=== PATIENT | female | born 1940 | race Caucasian/White ===

== ENCOUNTER → 2020-02-28 | Outpatient (CLI) | payer MEDICARE ==
[~2020-02-28] MED LIST: APIX5TAB PO; ATEN25TA PO; BRIM15OS OU; CETI10CA5 PO; CHOL20004 PO; HYDR25TA PO; LATA2.5D14 OU; LETR2.5T7 PO; LEVO50TA11 PO; LOSA100T58 PO; LOVA40TA2 PO; PANT40TA54 PO; SERT50TA12 PO; TRAM50TA4 PO; TRAZ-185 PO
== END | disposition home or self-care (01) ==
LOC: RAH 11:47
PROVIDERS: ATTEND Otolaryngology Plastic Surgery within the Head & Neck
DX: E04.1 Nontoxic single thyroid nodule (principal)
CPT/HCPCS: 76536

== ENCOUNTER → 2020-07-25 | Outpatient (CLI) | payer MEDICARE ==
[~2020-07-25] MED LIST changes: +SERT-439 PO; -SERT50TA12 PO
== END | disposition home or self-care (01) ==
LOC: RAH 15:19
PROVIDERS: ATTEND Otolaryngology Plastic Surgery within the Head & Neck
DX: E04.1 Nontoxic single thyroid nodule (principal); E89.0 Postprocedural hypothyroidism
CPT/HCPCS: 76536

== ENCOUNTER → 2020-08-15 | Outpatient (CLI) | payer MEDICARE ==
[2020-08-15 10:49] LABS: PROTHROMBIN TIME 10.9 SEC (9.6-11.6)
[2020-08-15 10:50] LABS: PARTIAL THROMBOPLASTIN TIME 25.4 SEC (26.3-35.5)
== END | disposition home or self-care (01) ==
LOC: RAH 09:48
PROVIDERS: ATTEND Otolaryngology Plastic Surgery within the Head & Neck
DX: R22.1 Localized swelling, mass and lump, neck (principal); I88.9 Nonspecific lymphadenitis, unspecified; Z98.890 Other specified postprocedural states
CPT/HCPCS: 36415; 76536; 85610; 85730

== ENCOUNTER → 2022-03-13 | Outpatient (CLI) | payer MEDICARE ==
[~2022-03-13] MED LIST changes: +IOHEXOL 350 MG/ML 100ML INFUS..BTL IV ONE
== END | disposition home or self-care (01) ==
LOC: RAH 13:30
PROVIDERS: ATTEND Family Medicine
DX: M48.54XA Collapsed vertebra, not elsewhere classified, thoracic region, initial encounter for fracture (principal); M85.80 Other specified disorders of bone density and structure, unspecified site
CPT/HCPCS: 72130; Q9967

== ENCOUNTER 2022-04-01 07:29 | Day surgery (SDC) | payer MEDICARE ==
[2022-03-31 12:07] LABS: BASOPHILS % (AUTO) 0.8 % (0.0-5.0); EOSINOPHILS % (AUTO) 4.2 % (0.0-8.0); LYMPHOCYTES % (AUTO) 31.2 % (21.0-51.0); MEAN CORPUSCULAR HEMOGLOBIN 27.5 pg (27.0-33.0); MEAN CORPUSCULAR HGB CONC 30.9 g/dL (32.0-36.0); MEAN CORPUSCULAR VOLUME 88.9 fL (79-99); NEUTROPHILS % (AUTO) 55.6 % (40.0-77.0); PLATELET COUNT (AUTO) 321 K/uL (130-400); RED BLOOD CELL COUNT(AUTO) 3.71 MIL/uL (4.00-5.50); RED CELL DISTRIBUTION WIDTH 13.8 % (11.0-15.5); WHITE BLOOD COUNT (AUTO) 6.6 K/uL (4.8-10.8)
[2022-03-31 12:18] LABS: CREATININE 1.2 mg/dL (0.5-1.5)
[2022-03-31 12:20] LABS: INR 0.97 (0.85-1.15); PROTHROMBIN TIME 10.6 SEC (9.6-11.6)
[2022-03-31 12:38] VITALS: BP 122/81
[~2022-04-01] VITALS: Ht 152.4 cm; Wt 55.9 kg
[2022-04-01] VITALS (9 sets, daily range): BP systolic 91–215; BP diastolic 53–110
[~2022-04-01 07:29] MED LIST changes: +CEFAZOLIN SODIUM 2 GM VIAL IVPB SCH; -IOHEXOL 350 MG/ML 100ML INFUS..BTL IV ONE
[2022-04-01] MEDS ORDERED: 0.9%NACL 1000ML 1,000 ML IV ONE (07:35)
[2022-04-01] MEDS ORDERED: CEFAZOLIN SODIUM 1 GM VIAL ONE (08:25)
[2022-04-01] MEDS ORDERED: LIDOCAINE HCL 1% 20 ML VIAL ONE (08:25)
[2022-04-01] MEDS ORDERED: MIDAZOLAM HCL 1 MG/ML 2ML VIAL ONE ×2 (08:25→10:31)
[2022-04-01] MEDS ORDERED: BUPIVACAINE/PF 0.25% 30ML VIAL IJ ONE (08:25)
[2022-04-01] MEDS ORDERED: MEPERIDINE-PF 25 MG/ML SYG ONE ×2 (08:25→10:31)
[2022-04-01] MEDS ORDERED: IODIXANOL 320 MG/ML 100 ML VIAL ONE (09:20)
[2022-04-01] MEDS ORDERED: BACITRACIN 1 EACH PACKET TP ONE (10:49)
[2022-04-01] MEDS ORDERED: APIX2.5T PO (11:09)
[2022-04-01] MEDS ORDERED: TRAM50TA4 PO (11:12)
[2022-04-01] MEDS ORDERED: ACETAMINOPHEN 500 MG TABLET PO PRN (11:30)
== END 2022-04-01 14:40 | disposition home or self-care (01) ==
LOC: DAH 07:29
PROVIDERS: ATTEND Internal Medicine Cardiovascular Disease
DX: Z45.010 Encounter for checking and testing of cardiac pacemaker pulse generator [battery] (principal); I44.2 Atrioventricular block, complete; I34.81 Nonrheumatic mitral (valve) annulus calcification; I49.5 Sick sinus syndrome; I10 Essential (primary) hypertension; E78.5 Hyperlipidemia, unspecified; I48.0 Paroxysmal atrial fibrillation; E03.9 Hypothyroidism, unspecified; Z79.01 Long term (current) use of anticoagulants; Z79.899 Other long term (current) drug therapy; Z98.890 Other specified postprocedural states; Z90.710 Acquired absence of both cervix and uterus; Z90.49 Acquired absence of other specified parts of digestive tract; Z80.9 Family history of malignant neoplasm, unspecified; Z82.49 Family history of ischemic heart disease and other diseases of the circulatory system
CPT/HCPCS: 80048; 85025; 85610; 85730; 36415; 93005; 33229; 33225; 71045; 93308; C1769 ×2; C1900; C2621; J0690; J7030; J3490; J2250 ×2; J2175 ×2; Q9967; A4215; A6251; A4222; A4221; A4663; A4216; A6258; A4606; A4223 ×3; 33228; 99156; 99157

== ENCOUNTER → 2023-09-15 | Outpatient (CLI) | payer MEDICARE ==
[~2023-09-15] MED LIST changes: +APIX2.5T PO; -APIX5TAB PO; -BRIM15OS OU; -CEFAZOLIN SODIUM 2 GM VIAL IVPB SCH; -HYDR25TA PO; -LATA2.5D14 OU; -LETR2.5T7 PO; -LEVO50TA11 PO; -LOSA100T58 PO; +LOSA100T59 PO; -TRAZ-185 PO
== END | disposition home or self-care (01) ==
LOC: LAB 15:44
PROVIDERS: ATTEND Internal Medicine Cardiovascular Disease
DX: Z12.11 Encounter for screening for malignant neoplasm of colon (principal); E03.9 Hypothyroidism, unspecified
CPT/HCPCS: 82270

== ENCOUNTER → 2023-12-02 | Outpatient (CLI) | payer MEDICARE | END | disposition home or self-care (01) | LOC: RAH 10:39 | PROVIDERS: ATTEND Family Medicine | DX: T82.110A Breakdown (mechanical) of cardiac electrode, initial encounter (principal); M47.815 Spondylosis without myelopathy or radiculopathy, thoracolumbar region; Z95.0 Presence of cardiac pacemaker; Y71.2 Prosthetic and other implants, materials and accessory cardiovascular devices associated with adverse incidents; Y92.89 Other specified places as the place of occurrence of the external cause | CPT/HCPCS: 71046 ==